=== PATIENT | female | born 1935 | race Caucasian/White ===

== ENCOUNTER 2017-05-15 11:33 | Inpatient (IN) | payer OTHER ==
[~2017-05-15] VITALS: Ht 147.3 cm; Wt 59.9 kg
[~2017-05-15 11:33] MED LIST: ASPI81CT95 PO; ATOR20TA PO; GEMF600T8 PO; LEVO0.0216 PO; MEGE40SU6 PO; OMEP40EC1 PO
[2017-05-15 11:41] VITALS: BP 113/53
[2017-05-15] MEDS ORDERED: FAMOTIDINE 20 MG/2 ML VIAL IVP ONE (14:00)
[2017-05-15] MEDS ORDERED: GLYCOPYRROLATE 0.2 MG/ML VIAL IV ONE (14:00)
[2017-05-15 15:00] LABS: RED CELL DISTRIBUTION WIDTH 13.9 % (11.6-13.7)
[2017-05-15 15:06] LABS: HEMATOCRIT 37.2 % (36-48); HEMOGLOBIN 12.3 g/dL (12.0-16.0); MEAN CORPUSCULAR HEMOGLOBIN 28 pg (27-31); MEAN CORPUSCULAR HGB CONC 33 g/dL (33-37); MEAN CORPUSCULAR VOLUME 84 fL (80-94); PLATELET COUNT (AUTO) 163 K/uL (140-450); RED BLOOD CELL COUNT(AUTO) 4.41 MIL/uL (4.20-5.40); WHITE BLOOD COUNT (AUTO) 13.4 K/uL (4.8-10.8)
[2017-05-15 15:08] LABS: APPEARANCE,URINE CLOUDY (CLEAR); BILIRUBIN,URINE 1+ (NEGATIVE); BLOOD, URINE 3+ (NEGATIVE); COLOR,URINE YELLOW (YELLOW); LEUKOCYTE ESTERASE ,URINE 2+ (NEGATIVE); NITRITE, URINE NEGATIVE (NEGATIVE); UGLUCOSE NEGATIVE (NEGATIVE)
[2017-05-15 15:24] LABS: LYMPHOCYTES % (MANUAL) 13 % (20-46); MONOCYTES % (MANUAL) 1 % (5-12)
[2017-05-15 15:33] LABS: ALBUMIN 3.3 g/dL (3.4-5.0); AMYLASE 74 U/L (25-115); ANION GAP 19.5 (8-16); ASPARTATE AMINOTRANSFERASE 13 U/L (15-37); CARBON DIOXIDE 18.1 mmol/L (21-32); CHLORIDE 101 mmol/L (98-107); CREATININE 2.7 mg/dL (0.6-1.3); GLUCOSE 387 mg/dL (74-106); LIPASE 211 U/L (73-393); POTASSIUM 3.6 mmol/L (3.5-5.1); SODIUM SERUM 135 mmol/L (136-145); TOTAL BILIRUBIN 0.7 mg/dL (0.0-1.0); UREA NITROGEN, BLOOD 55 mg/dL (7-18)
[2017-05-15 16:08] LABS: RBC,URINE 50-80 /HPF (0-5); WBC,URINE 80-100 /HPF (0-5)
[2017-05-15] MEDS: NACL 0.9% 1,000 ML IV SCH ×4 (16:16→19:30)
[2017-05-15] MEDS ORDERED: NACL 0.9% 1,000 ML IV SCH (16:23)
[2017-05-15] MEDS ORDERED: LEVOFLOXACIN 500 MG/D5W PREMIX 100 ML IV ONE (16:25)
[2017-05-15] MEDS ORDERED: INSULIN REGULAR, HUMAN 100 UNIT/ML VIAL SUBQ ONE (16:30)
[2017-05-15] MEDS ORDERED: ONDANSETRON 4 MG/2 ML VIAL IVP PRN (16:45)
[2017-05-15] MEDS ORDERED: HYDROcodone/APAP 5/325 MG 1 TAB TAB PO PRN (16:45)
[2017-05-15] MEDS ORDERED: DEXTROSE 50% 50 ML SYR IVP PRN (16:45)
[2017-05-15] MEDS ORDERED: MORPHINE SULFATE 2 MG/ML SYR IVP PRN (16:45)
[2017-05-15] MEDS ORDERED: LORazepam 2 MG/ML VIAL IVP PRN (16:45)
[2017-05-15] MEDS ORDERED: ACETAMINOPHEN EXTRA STRENGTH 500 MG TAB PO ONE (16:45)
[2017-05-15] MEDS ORDERED: CLON0.1T42 PO (16:57)
[2017-05-15] MEDS ORDERED: MEGE40TA4 PO (16:59)
[2017-05-15] MEDS ORDERED: SITA100T8 PO (17:01)
[2017-05-15 19:30] VITALS: BP 111/61
[2017-05-15] MEDS: BLOOD GLUCOSE MONITORING 1 DEV DEV FS SCH (20:56)
[2017-05-15] MEDS ORDERED: GEMFIBROZIL 600 MG TAB PO SCH (21:00)
[2017-05-15] MEDS ORDERED: NACL 0.9% 1,000 ML IV ONE (23:15)
[2017-05-16] VITALS (45 sets, daily range): BP systolic 79–157; BP diastolic 38–98
[2017-05-16] MEDS ORDERED: NACL 0.9% 1,000 ML IV ONE (00:30)
[2017-05-16] MEDS ORDERED: NOREPINEPHRINE 4 MG in DEXTROSE 5% 250 ML IV PRN (01:45)
[2017-05-16] MEDS: NACL 0.9% 1,000 ML IV SCH ×3 (02:27→23:40)
[2017-05-16] MEDS ORDERED: NOREPINEPHRINE 4 MG/4 ML VIAL IV ONE (02:35)
[2017-05-16] MEDS ORDERED: PIPERACILLIN/TAZOBACTAM 2.25 GM VIAL IV ONE (03:29)
[2017-05-16 03:37] LABS: ALBUMIN 2.3 g/dL (3.4-5.0); ANION GAP 20.9 (8-16); ASPARTATE AMINOTRANSFERASE 18 U/L (15-37); CARBON DIOXIDE 12.4 mmol/L (21-32); CHLORIDE 111 mmol/L (98-107); CREATININE 2.8 mg/dL (0.6-1.3); GLUCOSE 144 mg/dL (74-106); POTASSIUM 3.3 mmol/L (3.5-5.1); TOTAL BILIRUBIN 0.5 mg/dL (0.0-1.0); UREA NITROGEN, BLOOD 54 mg/dL (7-18)
[2017-05-16 03:38] LABS: SODIUM SERUM 141 mmol/L (136-145)
[2017-05-16] MEDS: PIPER/TAZO 2.25GM/D5W PREMIX 50 ML IV SCH ×3 (04:24→20:16)
[2017-05-16] MEDS ORDERED: PIPER/TAZO 3.375GM/D5W PREMIX 50 ML IV SCH (05:00)
[2017-05-16 05:34] LABS: HEMATOCRIT 31.1 % (36-48); HEMOGLOBIN 10.4 g/dL (12.0-16.0); MEAN CORPUSCULAR HEMOGLOBIN 28 pg (27-31); MEAN CORPUSCULAR HGB CONC 33 g/dL (33-37); MEAN CORPUSCULAR VOLUME 85 fL (80-94); PLATELET COUNT (AUTO) 145 K/uL (140-450); RED BLOOD CELL COUNT(AUTO) 3.65 MIL/uL (4.20-5.40); RED CELL DISTRIBUTION WIDTH 14.5 % (11.6-13.7)
[2017-05-16 05:48] LABS: LYMPHOCYTES % (MANUAL) 5 % (20-46); METAMYELOCYTES % 2 % (0-0); MONOCYTES % (MANUAL) 6 % (5-12)
[2017-05-16] MEDS: BLOOD GLUCOSE MONITORING 1 DEV DEV FS SCH ×4 (06:43→20:15)
[2017-05-16] MEDS: INSULIN LISPRO SLIDING SCALE 100 UNITS/ML VIAL SUBQ PRN ×4 (06:44→20:17)
[2017-05-16 07:03] LABS: HEMATOCRIT 31.5 % (36-48); HEMOGLOBIN 10.5 g/dL (12.0-16.0); MEAN CORPUSCULAR HEMOGLOBIN 28 pg (27-31); MEAN CORPUSCULAR HGB CONC 33 g/dL (33-37); MEAN CORPUSCULAR VOLUME 85 fL (80-94); PLATELET COUNT (AUTO) 149 K/uL (140-450); RED BLOOD CELL COUNT(AUTO) 3.71 MIL/uL (4.20-5.40); RED CELL DISTRIBUTION WIDTH 14.7 % (11.6-13.7); WHITE BLOOD COUNT (AUTO) 23.7 K/uL (4.8-10.8)
[2017-05-16 07:52] LABS: ANION GAP 23.2 (8-16); CHLORIDE 111 mmol/L (98-107); CREATININE 2.7 mg/dL (0.6-1.3); GLUCOSE 203 mg/dL (74-106); POTASSIUM 3.4 mmol/L (3.5-5.1); SODIUM SERUM 140 mmol/L (136-145); UREA NITROGEN, BLOOD 52 mg/dL (7-18)
[2017-05-16 07:58] LABS: CARBON DIOXIDE 9.2 mmol/L (21-32)
[2017-05-16 08:08] LABS: LYMPHOCYTES % (MANUAL) 6 % (20-46); MONOCYTES % (MANUAL) 2 % (5-12)
[2017-05-16] MEDS: PANTOPRAZOLE 40 MG TABEC PO SCH (08:30)
[2017-05-16] MEDS: ATORVASTATIN 20 MG TAB PO SCH (08:30)
[2017-05-16] MEDS: ASPIRIN 81 MG TAB.CHEW PO SCH (08:30)
[2017-05-16] MEDS: LEVOTHYROXINE 0.025 MG TAB PO SCH (08:31)
[2017-05-16] MEDS: MEGESTROL 40 MG TAB PO SCH (08:31)
[2017-05-16] MEDS ORDERED: NON-FORMULARY ITEM (Omeprazole* (Prilosec*) 20 MG) PO SCH (09:00)
[2017-05-16] MEDS ORDERED: LEVOTHYROXINE 0.025 MG TAB PO SCH (09:00)
[2017-05-16] MEDS: ACETAMINOPHEN 325 MG TAB PO PRN (12:12)
[2017-05-16] MEDS ORDERED: HYDRAGUARD CREAM TP PRN (16:10)
[2017-05-16] MEDS ORDERED: POTASSIUM CHLORIDE 10 MEQ TABER PO SCH (16:30)
[2017-05-16] MEDS: MEROPENEM 500 MG in NACL 0.9% 50 ML IV SCH ×2 (23:20→23:30)
[2017-05-16] MEDS ORDERED: MEROPENEM 500 MG VIAL IV ONE (23:23)
[2017-05-16] MEDS: MEROPENEM 500 MG in NACL 0.9% 100 ML IV SCH (23:39)
[2017-05-17] VITALS (10 sets, daily range): BP systolic 92–155; BP diastolic 56–77
[2017-05-17] MEDS: BLOOD GLUCOSE MONITORING 1 DEV DEV FS SCH ×4 (06:48→21:00)
[2017-05-17] MEDS: INSULIN LISPRO SLIDING SCALE 100 UNITS/ML VIAL SUBQ PRN ×4 (06:49→20:19)
[2017-05-17] MEDS: NACL 0.9% 1,000 ML IV SCH ×3 (08:45→23:23)
[2017-05-17] MEDS: MEGESTROL 40 MG TAB PO SCH (09:27)
[2017-05-17] MEDS: PANTOPRAZOLE 40 MG TABEC PO SCH (09:28)
[2017-05-17] MEDS: ATORVASTATIN 20 MG TAB PO SCH (09:28)
[2017-05-17] MEDS: LEVOTHYROXINE 0.025 MG TAB PO SCH (09:29)
[2017-05-17] MEDS: ASPIRIN 81 MG TAB.CHEW PO SCH (09:30)
[2017-05-17 12:10] LABS: HEMATOCRIT 32.2 % (36-48); HEMOGLOBIN 10.7 g/dL (12.0-16.0); MEAN CORPUSCULAR HEMOGLOBIN 28 pg (27-31); MEAN CORPUSCULAR HGB CONC 33 g/dL (33-37); MEAN CORPUSCULAR VOLUME 85 fL (80-94); PLATELET COUNT (AUTO) 114 K/uL (140-450); RED CELL DISTRIBUTION WIDTH 14.3 % (11.6-13.7); WHITE BLOOD COUNT (AUTO) 15.6 K/uL (4.8-10.8)
[2017-05-17 12:19] LABS: ANION GAP 19.7 (8-16); CARBON DIOXIDE 12.3 mmol/L (21-32); CHLORIDE 110 mmol/L (98-107); CREATININE 2.7 mg/dL (0.6-1.3); GLUCOSE 264 mg/dL (74-106); SODIUM SERUM 138 mmol/L (136-145); UREA NITROGEN, BLOOD 60 mg/dL (7-18)
[2017-05-17 12:24] LABS: LYMPHOCYTES % (MANUAL) 11 % (20-46); MONOCYTES % (MANUAL) 2 % (5-12)
[2017-05-17] MEDS ORDERED: MUPIROCIN 2% OINT 22 GM TUBE TP SCH (16:15)
[2017-05-17] MEDS: CHLORHEXADINE GLUC 2% CLOTH TP SCH (16:58)
[2017-05-17] MEDS ORDERED: INFLUENZA VIRUS VACCINE QUAD 0.5 ML SYR IMVAC SCH (17:00)
[2017-05-17] MEDS ORDERED: PNEUMOCOCCAL VACCINE 23 MCG/0.5 ML VIAL IMVAC SCH (17:00)
[2017-05-17] MEDS: MEROPENEM 500 MG in NACL 0.9% 100 ML IV SCH (23:16)
[2017-05-18] VITALS: BP 139/67
[2017-05-18] MEDS: NACL 0.9% 1,000 ML IV SCH ×2 (04:45→16:47)
[2017-05-18] MEDS: BLOOD GLUCOSE MONITORING 1 DEV DEV FS SCH ×4 (05:42→20:33)
[2017-05-18] MEDS: INSULIN LISPRO SLIDING SCALE 100 UNITS/ML VIAL SUBQ PRN ×4 (05:43→20:16)
[2017-05-18 05:56] VITALS: BP 149/70
[2017-05-18 08:00] VITALS: BP 140/79
[2017-05-18] MEDS: ACETAMINOPHEN 325 MG TAB PO PRN (09:36)
[2017-05-18] MEDS: MEGESTROL 40 MG TAB PO SCH (09:38)
[2017-05-18] MEDS: LEVOTHYROXINE 0.025 MG TAB PO SCH (09:39)
[2017-05-18] MEDS: PANTOPRAZOLE 40 MG TABEC PO SCH (09:39)
[2017-05-18] MEDS: ATORVASTATIN 20 MG TAB PO SCH (09:39)
[2017-05-18] MEDS: ASPIRIN 81 MG TAB.CHEW PO SCH (09:39)
[2017-05-18] MEDS ORDERED: MEROPENEM 500 MG in NACL 0.9% 50 ML IV SCH (11:13)
[2017-05-18 12:00] VITALS: BP 137/70
[2017-05-18 16:00] VITALS: BP 150/75
[2017-05-18] MEDS: CHLORHEXADINE GLUC 2% CLOTH TP SCH (16:48)
[2017-05-18] MEDS: MUPIROCIN 2% OINT 22 GM TUBE TP SCH (16:48)
[2017-05-18 20:00] VITALS: BP 159/80
[2017-05-18] MEDS ORDERED: cefTRIAXone 1,000 MG VIAL ONE (20:03)
[2017-05-19] VITALS: BP 136/66
[2017-05-19] MEDS: NACL 0.9% 1,000 ML IV SCH ×3 (00:45→20:45)
[2017-05-19] MEDS: BLOOD GLUCOSE MONITORING 1 DEV DEV FS SCH ×4 (06:17→20:48)
[2017-05-19] MEDS: INSULIN LISPRO SLIDING SCALE 100 UNITS/ML VIAL SUBQ PRN ×4 (06:42→20:48)
[2017-05-19 08:00] VITALS: BP 146/68
[2017-05-19] MEDS: LEVOTHYROXINE 0.025 MG TAB PO SCH (09:04)
[2017-05-19] MEDS: PANTOPRAZOLE 40 MG TABEC PO SCH (09:05)
[2017-05-19] MEDS: ATORVASTATIN 20 MG TAB PO SCH (09:05)
[2017-05-19] MEDS: ASPIRIN 81 MG TAB.CHEW PO SCH (09:05)
[2017-05-19] MEDS: MEGESTROL 40 MG TAB PO SCH (09:06)
[2017-05-19 16:00] VITALS: BP 148/79
[2017-05-19] MEDS: MUPIROCIN 2% OINT 22 GM TUBE TP SCH (16:42)
[2017-05-19] MEDS: CHLORHEXADINE GLUC 2% CLOTH TP SCH (16:42)
[2017-05-20] VITALS: BP 148/71
[2017-05-20] MEDS: NACL 0.9% 1,000 ML IV SCH (06:10)
[2017-05-20 06:36] LABS: HEMATOCRIT 32.9 % (36-48); HEMOGLOBIN 11.2 g/dL (12.0-16.0); MEAN CORPUSCULAR HEMOGLOBIN 28 pg (27-31); MEAN CORPUSCULAR HGB CONC 34 g/dL (33-37); MEAN CORPUSCULAR VOLUME 84 fL (80-94); PLATELET COUNT (AUTO) 133 K/uL (140-450); RED BLOOD CELL COUNT(AUTO) 3.93 MIL/uL (4.20-5.40); RED CELL DISTRIBUTION WIDTH 13.6 % (11.6-13.7); WHITE BLOOD COUNT (AUTO) 7.7 K/uL (4.8-10.8)
[2017-05-20] MEDS: BLOOD GLUCOSE MONITORING 1 DEV DEV FS SCH ×2 (06:39→11:33)
[2017-05-20] MEDS: INSULIN LISPRO SLIDING SCALE 100 UNITS/ML VIAL SUBQ PRN ×2 (06:39→12:34)
[2017-05-20 07:28] LABS: ANION GAP 17.9 (8-16); CARBON DIOXIDE 15.7 mmol/L (21-32); CHLORIDE 111 mmol/L (98-107); CREATININE 1.3 mg/dL (0.6-1.3); EOSINOPHILS % (MANUAL) 2 % (0-4); GLUCOSE 214 mg/dL (74-106); LYMPHOCYTES % (MANUAL) 21 % (20-46); METAMYELOCYTES % 1 % (0-0); MONOCYTES % (MANUAL) 14 % (5-12); MYELOCYTES % 1 % (0-0); POTASSIUM 3.6 mmol/L (3.5-5.1); SODIUM SERUM 141 mmol/L (136-145); UREA NITROGEN, BLOOD 27 mg/dL (7-18)
[2017-05-20 08:00] VITALS: BP 143/69
[2017-05-20] MEDS: PANTOPRAZOLE 40 MG TABEC PO SCH (09:01)
[2017-05-20] MEDS: LEVOTHYROXINE 0.025 MG TAB PO SCH (09:01)
[2017-05-20] MEDS: MEGESTROL 40 MG TAB PO SCH (09:01)
[2017-05-20] MEDS: ASPIRIN 81 MG TAB.CHEW PO SCH (09:01)
[2017-05-20] MEDS: ATORVASTATIN 20 MG TAB PO SCH (09:01)
[2017-05-20] MEDS ORDERED: CEPH500C16 PO (11:50)
== END 2017-05-20 14:00 | disposition home or self-care (01) | DRG 871 ==
LOC: MED 11:33 → MTU 16:48 → EDBD 16:48 → MIC 05-16 01:49 → MTU 05-17 19:06
PROVIDERS: ADMIT Hospitalist; ATTEND Hospitalist
PROC: 3E0234Z Introduction of Serum, Toxoid and Vaccine into Muscle, Percutaneous Approach (ICD-10-PCS; principal; 2017-05-20)
PROC: 3E0234Z Introduction of Serum, Toxoid and Vaccine into Muscle, Percutaneous Approach (ICD-10-PCS; 2017-05-20)
DX: A41.51 Sepsis due to Escherichia coli [E. coli] (principal); R65.21 Severe sepsis with septic shock; N12 Tubulo-interstitial nephritis, not specified as acute or chronic; E11.9 Type 2 diabetes mellitus without complications; E03.9 Hypothyroidism, unspecified; B96.20 Unspecified Escherichia coli [E. coli] as the cause of diseases classified elsewhere; E78.5 Hyperlipidemia, unspecified; I10 Essential (primary) hypertension; N20.0 Calculus of kidney; E87.6 Hypokalemia; E86.0 Dehydration; Z22.322 Carrier or suspected carrier of Methicillin resistant Staphylococcus aureus; Z79.84 Long term (current) use of oral hypoglycemic drugs; Z79.82 Long term (current) use of aspirin; Z79.899 Other long term (current) drug therapy; Z23 Encounter for immunization
CPT/HCPCS: 36415; 80048; 80053; 81001; 82009; 82150; 82550; 82948; 83605; 83690; 84484; 85025; 87040; 87081; 87086; 87186; 90658; 90732; 93005; 96361; 96374; 96375; 99285; J0696; J1644; J1815; J1956; J2185; J2270; J2405; J2543; J3490; J7030; J7060

== ENCOUNTER → 2017-06-01 | Outpatient (CLI) | payer OTHER ==
[~2017-06-01] MED LIST changes: +CEPH500C16 PO; +CLON0.1T42 PO; +MEGE40TA4 PO; +SITA100T8 PO
[2017-06-01 10:22] LABS: APPEARANCE,URINE CLEAR (CLEAR); BILIRUBIN,URINE NEGATIVE (NEGATIVE); BLOOD, URINE NEGATIVE (NEGATIVE); COLOR,URINE YELLOW (YELLOW); LEUKOCYTE ESTERASE ,URINE NEGATIVE (NEGATIVE); NITRITE, URINE NEGATIVE (NEGATIVE); UGLUCOSE NEGATIVE (NEGATIVE)
[2017-06-01 10:36] LABS: ANION GAP 17.7 (8-16); ASPARTATE AMINOTRANSFERASE 13 U/L (15-37); CARBON DIOXIDE 20.1 mmol/L (21-32); CHLORIDE 103 mmol/L (98-107); CREATININE 1.7 mg/dL (0.6-1.3); GLUCOSE 184 mg/dL (74-106); MAGNESIUM 1.3 mg/dL (1.8-2.4); PHOSPHORUS 3.1 mg/dL (2.5-4.9); POTASSIUM 3.8 mmol/L (3.5-5.1); SODIUM SERUM 137 mmol/L (136-145); TOTAL BILIRUBIN 0.4 mg/dL (0.0-1.0); UREA NITROGEN, BLOOD 37 mg/dL (7-18)
[2017-06-01 13:38] LABS: BASOPHILS # (AUTO) 0.4 K/uL (0.00-0.22); EOSINOPHILS # (AUTO) 0.1 K/uL (0-0.4); HEMATOCRIT 34.8 % (36-48); HEMOGLOBIN 11.4 g/dL (12.0-16.0); MEAN CORPUSCULAR HEMOGLOBIN 28 pg (27-31); MEAN CORPUSCULAR HGB CONC 33 g/dL (33-37); MEAN CORPUSCULAR VOLUME 85 fL (80-94); MONOCYTES # (AUTO) 1.4 K/uL (0.8-1.0); NEUTROPHILS # (AUTO) 7.4 K/uL (1.8-7.7); PLATELET COUNT (AUTO) 332 K/uL (140-450); RED CELL DISTRIBUTION WIDTH 14.3 % (11.6-13.7); WHITE BLOOD COUNT (AUTO) 13.3 K/uL (4.8-10.8)
== END ==
LOC: MLB 09:28
PROVIDERS: ATTEND Internal Medicine Nephrology
DX: E11.22 Type 2 diabetes mellitus with diabetic chronic kidney disease (principal); N18.4 Chronic kidney disease, stage 4 (severe); I12.9 Hypertensive chronic kidney disease with stage 1 through stage 4 chronic kidney disease, or unspecified chronic kidney disease; E11.21 Type 2 diabetes mellitus with diabetic nephropathy; E83.42 Hypomagnesemia
CPT/HCPCS: 36415; 80053; 81003; 82570; 83735; 84100; 84156; 85025

== ENCOUNTER 2017-09-29 08:32 | Outpatient (CLI) | payer OTHER ==
[2017-09-29 09:25] LABS: BASOPHILS # (AUTO) 0.1 K/uL (0.00-0.22); BASOPHILS % (AUTO) 0.7 % (0.0-2.0); EOSINOPHILS # (AUTO) 0.1 K/uL (0-0.4); EOSINOPHILS % (AUTO) 1.5 % (0.0-4.0); HEMATOCRIT 37.6 % (36-48); HEMOGLOBIN 12.2 g/dL (12.0-16.0); LYMPHOCYTES # (AUTO) 2.5 K/uL (2.5-16.5); LYMPHOCYTES % (AUTO) 30.6 % (20.5-51.1); MEAN CORPUSCULAR HEMOGLOBIN 27 pg (27-31); MEAN CORPUSCULAR HGB CONC 33 g/dL (33-37); MEAN CORPUSCULAR VOLUME 84.3 fL (80-94); MONOCYTES # (AUTO) 0.7 K/uL (0.8-1.0); MONOCYTES % (AUTO) 8.1 % (1.7-9.3); NEUTROPHILS # (AUTO) 4.8 K/uL (1.8-7.7); NEUTROPHILS % (AUTO) 59.1 % (42.2-75.2); PLATELET COUNT (AUTO) 217 K/uL (140-450); RED BLOOD CELL COUNT(AUTO) 4.46 MIL/uL (4.20-5.40); RED CELL DISTRIBUTION WIDTH 16.1 % (11.6-13.7); WHITE BLOOD COUNT (AUTO) 8.2 K/uL (4.8-10.8)
[2017-09-29 09:36] LABS: APPEARANCE,URINE CLEAR (CLEAR); BILIRUBIN,URINE NEGATIVE (NEGATIVE); BLOOD, URINE NEGATIVE (NEGATIVE); COLOR,URINE YELLOW (YELLOW); LEUKOCYTE ESTERASE ,URINE 1+ (NEGATIVE); NITRITE, URINE NEGATIVE (NEGATIVE); UGLUCOSE NEGATIVE (NEGATIVE)
[2017-09-29 09:48] LABS: RBC,URINE NONE SEEN /HPF (0-5)
[2017-09-29 10:49] LABS: ALBUMIN 3.5 g/dL (3.4-5.0); ANION GAP 18.4 (8-16); ASPARTATE AMINOTRANSFERASE 14 U/L (15-37); CARBON DIOXIDE 19.2 mmol/L (21-32); CHLORIDE 104 mmol/L (98-107); GLUCOSE 217 mg/dL (74-106); MAGNESIUM 1.6 mg/dL (1.8-2.4); PHOSPHORUS 3.2 mg/dL (2.5-4.9); POTASSIUM 3.6 mmol/L (3.5-5.1); SODIUM SERUM 138 mmol/L (136-145); TOTAL BILIRUBIN 0.3 mg/dL (0.0-1.0); UREA NITROGEN, BLOOD 52 mg/dL (7-18)
[2017-09-29 16:46] LABS: CREATININE,URINE RANDOM 133 mg/dL (30-125); URINE PROTEIN QUANT RANDOM 38.4 mg/dL (15-45)
== END 2017-09-29 17:58 | disposition home or self-care (01) ==
LOC: MLB 08:32
PROVIDERS: ATTEND Internal Medicine Nephrology
DX: I12.9 Hypertensive chronic kidney disease with stage 1 through stage 4 chronic kidney disease, or unspecified chronic kidney disease (principal); E11.22 Type 2 diabetes mellitus with diabetic chronic kidney disease; N18.3 Chronic kidney disease, stage 3 (moderate); E78.5 Hyperlipidemia, unspecified; E03.9 Hypothyroidism, unspecified; K21.9 Gastro-esophageal reflux disease without esophagitis; N17.9 Acute kidney failure, unspecified; Z79.899 Other long term (current) drug therapy; Z79.82 Long term (current) use of aspirin
CPT/HCPCS: 36415; 80053; 81001; 82570; 83735; 84100; 84157; 85025; 87086; 87186

== ENCOUNTER 2018-07-12 08:30 | Outpatient (CLI) | payer OTHER ==
[~2018-07-12 08:30] MED LIST changes: +GEMF-61 PO; -GEMF600T8 PO
[2018-07-12 09:14] LABS: APPEARANCE,URINE CLEAR (CLEAR); BILIRUBIN,URINE NEGATIVE (NEGATIVE); BLOOD, URINE NEGATIVE (NEGATIVE); COLOR,URINE YELLOW (YELLOW); LEUKOCYTE ESTERASE ,URINE NEGATIVE (NEGATIVE); NITRITE, URINE NEGATIVE (NEGATIVE); PH,URINE 5.5 (5.0-9.0); UGLUCOSE NEGATIVE (NEGATIVE)
[2018-07-12 09:31] LABS: BASOPHILS # (AUTO) 0.1 K/uL (0.00-0.22); BASOPHILS % (AUTO) 0.6 % (0.0-2.0); EOSINOPHILS # (AUTO) 0.3 K/uL (0-0.4); EOSINOPHILS % (AUTO) 3.5 % (0.0-4.0); HEMOGLOBIN 12.5 g/dL (12.0-16.0); LYMPHOCYTES # (AUTO) 2.8 K/uL (2.5-16.5); LYMPHOCYTES % (AUTO) 33.4 % (20.5-51.1); MEAN CORPUSCULAR HEMOGLOBIN 28 pg (27-31); MEAN CORPUSCULAR HGB CONC 33 g/dL (33-37); MEAN CORPUSCULAR VOLUME 85.2 fL (80-94); MONOCYTES # (AUTO) 0.8 K/uL (0.8-1.0); MONOCYTES % (AUTO) 9.4 % (1.7-9.3); NEUTROPHILS # (AUTO) 4.4 K/uL (1.8-7.7); NEUTROPHILS % (AUTO) 53.1 % (42.2-75.2); PLATELET COUNT (AUTO) 244 K/uL (140-450); RED BLOOD CELL COUNT(AUTO) 4.46 MIL/uL (4.20-5.40); WHITE BLOOD COUNT (AUTO) 8.3 K/uL (4.8-10.8)
[2018-07-12 09:36] LABS: RBC,URINE 0-5 /HPF (0-5); WBC,URINE 0-5 /HPF (0-5)
[2018-07-12 09:43] LABS: CARBON DIOXIDE 21.6 mmol/L (21-32); CHLORIDE 104 mmol/L (98-107); CREATININE 1.6 mg/dL (0.6-1.3); GLUCOSE 231 mg/dL (74-106); POTASSIUM 4.6 mmol/L (3.5-5.1); SODIUM SERUM 140 mmol/L (136-145); UREA NITROGEN, BLOOD 46 mg/dL (7-18)
[2018-07-12 09:48] LABS: ALBUMIN 3.5 g/dL (3.4-5.0); ASPARTATE AMINOTRANSFERASE 26 U/L (15-37); MAGNESIUM 1.6 mg/dL (1.8-2.4); PHOSPHORUS 3.1 mg/dL (2.5-4.9); TOTAL BILIRUBIN 0.4 mg/dL (0.0-1.0)
== END 2018-07-12 21:01 | disposition home or self-care (01) ==
LOC: MLB 08:30
PROVIDERS: ATTEND Internal Medicine Nephrology
DX: I12.9 Hypertensive chronic kidney disease with stage 1 through stage 4 chronic kidney disease, or unspecified chronic kidney disease (principal); E11.22 Type 2 diabetes mellitus with diabetic chronic kidney disease; N18.4 Chronic kidney disease, stage 4 (severe); E87.2 Acidosis
CPT/HCPCS: 36415; 80053; 81001; 83735; 84100; 84157; 85025

== ENCOUNTER 2018-10-28 18:09 | Inpatient (IN) | payer OTHER ==
[~2018-10-28] VITALS: Ht 152.4 cm; Wt 54.4 kg
[2018-10-28 18:13] VITALS: BP 131/60
--- NOTE | 2018-10-28 18:15 | NUR ---
Patient to bed 3. RN evaluating patient at bedside.
[2018-10-28] MEDS ORDERED: NACL 0.9% 500 ML IV ONE (18:25)
--- NOTE | 2018-10-28 18:30 | NUR ---
Dr. Melo evaluating patient at bedside.
[2018-10-28] MEDS ORDERED: KETOROLAC 30 MG/ML VIAL IVP ONE (18:45)
--- NOTE | 2018-10-28 18:45 | NUR ---
PT BIB DAUGHTER WITH C/O LOWER ABD PAIN RADIATING TO THE WHOLE BACK X 7 DAYS. STATES HER PAINN GOT WORSE SINCE YESTERDAY.PAIN 4/10 AT THIS TIME. DENIES TAKING ANY MEDICATION. PT HAD FALL IN THE BACK YARD 7 DAYS AGO, DID NOT GO TO HOSPITAL TO CHECK BECAUSE PT STATED SHE WAS FINE. NO LOC CHANGED. PT AAOX4, ABLE TO MAKE HER NEEDS KNOWN. DENIES ANY ALLERGIC TO MEDS. ER MD ASSESSED THE PT. HX: DM. KIDNEY FAILURE, HIGH CHOLESTROL TX: FUROSEMIDE, CLONODINE HCL, ASPIRIN, MEGESTROL, SODIUM BICARD, ATORVASTATIN, JANUVIA, AMLODIPINE BESYLATE, OMEPRAZOLE, LEVOTHYROXINE, GEMFIBROZIL
[2018-10-28 18:51] LABS: BASOPHILS # (AUTO) 0.1 K/uL (0.00-0.22); EOSINOPHILS # (AUTO) 0.1 K/uL (0-0.4); HEMATOCRIT 35.7 % (36-48); HEMOGLOBIN 11.7 g/dL (12.0-16.0); LYMPHOCYTES # (AUTO) 2.5 K/uL (2.5-16.5); LYMPHOCYTES % (AUTO) 22.9 % (20.5-51.1); MEAN CORPUSCULAR HEMOGLOBIN 29 pg (27-31); MEAN CORPUSCULAR HGB CONC 33 g/dL (33-37); MEAN CORPUSCULAR VOLUME 87.2 fL (80-94); MONOCYTES # (AUTO) 0.9 K/uL (0.8-1.0); MONOCYTES % (AUTO) 8.1 % (1.7-9.3); NEUTROPHILS # (AUTO) 7.3 K/uL (1.8-7.7); PLATELET COUNT (AUTO) 218 K/uL (140-450); RED BLOOD CELL COUNT(AUTO) 4.09 MIL/uL (4.20-5.40); RED CELL DISTRIBUTION WIDTH 15.4 % (11.6-13.7)
--- NOTE | 2018-10-28 18:55 | NUR ---
PT WENT TO CT. IVF INFUSING WELL. GAVE PT WATER TO DRINK . CANNOT PEE AT THIS TIME. WILL GO RESTROOM IN A WHILE AFTER COMING BACK FRROM CT. URINE CUP ATG THE BEDSIDE.
[2018-10-28 19:02] LABS: ANION GAP 18.8 (8-16); CARBON DIOXIDE 18.5 mmol/L (21-32); CHLORIDE 106 mmol/L (98-107); GLUCOSE 267 mg/dL (74-106); POTASSIUM 3.3 mmol/L (3.5-5.1); SODIUM SERUM 140 mmol/L (136-145); UREA NITROGEN, BLOOD 52 mg/dL (7-18)
[2018-10-28 19:05] LABS: PROTHROMBIN TIME 10.8 secs (10.8-13.4)
[2018-10-28 19:07] LABS: ALBUMIN 3.5 g/dL (3.4-5.0); ASPARTATE AMINOTRANSFERASE 16 U/L (15-37); TOTAL BILIRUBIN 0.6 mg/dL (0.0-1.0)
--- NOTE | 2018-10-28 19:23 | NUR ---
PT BACK FROM CT. WENT RESTROOM TO GET URINE SMPL.
--- NOTE | 2018-10-28 19:27 | NUR ---
REPORT GIVEN TO MABEL CALLOWAY. PT AT THE BEDSIDE.PT STABLE.
[2018-10-28] MEDS ORDERED: INSULIN REGULAR, HUMAN 100 UNIT/ML VIAL SUBQ ONE (19:45)
[2018-10-28] MEDS ORDERED: POTASSIUM CHLORIDE 10 MEQ TABER PO ONE (19:45)
[2018-10-28] MEDS ORDERED: CIPROFLOXACIN 250 MG TAB PO ONE (19:50)
[2018-10-28] MEDS ORDERED: metroNIDAZOLE 500 MG/NS PREMIX 100 ML IV ONE (19:50)
[2018-10-28 20:08] LABS: APPEARANCE,URINE CLEAR (CLEAR); BILIRUBIN,URINE NEGATIVE (NEGATIVE); BLOOD, URINE NEGATIVE (NEGATIVE); COLOR,URINE YELLOW (YELLOW); LEUKOCYTE ESTERASE ,URINE TRACE (NEGATIVE); NITRITE, URINE NEGATIVE (NEGATIVE); PH,URINE 5.5 (5.0-9.0); UGLUCOSE NEGATIVE (NEGATIVE)
[2018-10-28] MEDS ORDERED: HYDROcodone/APAP 5/325 MG 1 TAB TAB PO PRN ×2 (20:10)
[2018-10-28] MEDS ORDERED: POTASSIUM CHLORIDE 40 MEQ, LIDOCAINE 1% 25 MG in NACL 0.9% 250 ML IV PRN (20:10)
[2018-10-28] MEDS ORDERED: BISACODYL 10 MG SUPP RC PRN (20:10)
[2018-10-28] MEDS ORDERED: ACETAMINOPHEN 650 MG SUPP RC PRN (20:10)
[2018-10-28] MEDS ORDERED: ACETAMINOPHEN 325 MG TAB PO PRN (20:10)
[2018-10-28] MEDS ORDERED: POTASSIUM CHLORIDE 10 MEQ TABER PO PRN (20:10)
[2018-10-28] MEDS ORDERED: MORPHINE SULFATE 2 MG/ML SYR IVP PRN (20:10)
[2018-10-28] MEDS ORDERED: SODIUM PHOSPHATE 118 ML ENEM RC PRN (20:10)
[2018-10-28] MEDS ORDERED: cloNIDine 0.1 MG TAB PO PRN (20:10)
[2018-10-28] MEDS ORDERED: diphenhydrAMINE 50 MG/ML VIAL IVP PRN (20:10)
[2018-10-28] MEDS ORDERED: DEXTROSE 50% 50 ML SYR IVP PRN (20:10)
[2018-10-28] MEDS ORDERED: DOCUSATE SODIUM 250 MG GELCAP PO PRN (20:10)
[2018-10-28] MEDS ORDERED: ALUMINUM HYD/MAG/SIMETHICONE 30 ML UDC PO PRN (20:10)
[2018-10-28] MEDS ORDERED: ONDANSETRON 4 MG/2 ML VIAL IVP PRN (20:10)
[2018-10-28] MEDS ORDERED: MAGNESIUM OXIDE 400 MG TAB PO PRN (20:10)
--- NOTE | 2018-10-28 20:10 | NUR ---
ALL RESULTS BACK AND NOTED BY ERMD AND FOR ADMISSION
--- NOTE | 2018-10-28 20:16 | NUR ---
Patient will be admitted to care of DR. BANUELOS. Admited to [facility] Will go to [id number]. Belongings list completed. Report to STACEY MONROE
[2018-10-28 20:24] LABS: RBC,URINE 0 /HPF (0-5)
[2018-10-28] MEDS: BLOOD GLUCOSE MONITORING 1 DEV DEV FS SCH (21:00)
[2018-10-28] MEDS ORDERED: ZOLPIDEM 5 MG TAB PO PRN (21:00)
[2018-10-28 21:20] VITALS: BP 145/72
--- NOTE | 2018-10-28 21:20 | NUR ---
RECEIVED BEDSIDE REPORT FROM ER NURSE ELLI. PATIENT IS AWAKE, ALERT, AND COOPERATIVE. WELSH SPEAKING ONLY. GRANDDAUGHTER AT BEDSIDE PROVIDED ALL MEDICAL HISTORY OF THE PATIENT. PATIENT RESPIRATION EVEN UNLABORED ON ROOM AIR. SKIN IS WARM AND DRY. LEFT LATERAL CALF NOTED SKIN TEAR. IV PATENT AND INTACT. DENIES PAIN. LUNGS SOUNDS CLEAR ON AUSCULTATION. BOWEL SOUNDS PRESENT IN ALL QUADRANTS. ABDOMEN SOFT AND NON-TENDER. DENIES PAIN. LAST BM 10/28/18. PLAN OF CARE WAS DISCUSSED. MRSA SCREEN DONE. VITALS WERE TAKEN. ALL SAFETY MEASURES IN PLACE. BED IS AT LOW POSITION. CALL LIGHT WITHIN REACH. WILL CONTINUE TO MONITOR.
[2018-10-28] MEDS ORDERED: LEVOFLOXACIN 500 MG/D5W PREMIX 100 ML IV SCH (22:00)
[2018-10-28] MEDS: GEMFIBROZIL 600 MG TAB PO SCH (22:13)
[2018-10-28] MEDS: NACL 0.9% 1,000 ML IV SCH (22:14)
[2018-10-28] MEDS: INSULIN LISPRO SLIDING SCALE 100 UNITS/ML VIAL SUBQ PRN (22:33)
--- NOTE | 2018-10-28 22:36 | NUR ---
ALL SCHEDULED MEDS WERE GIVEN PER ORDER. WILL CONTINUE TO MONITOR.
[2018-10-29] VITALS: BP 108/65
--- NOTE | 2018-10-29 | NUR ---
VITALS WERE TAKEN. PATIENT IN STABLE CONDITION. NO DISTRESS NOTED. WILL CONTINUE TO MONITOR.
--- NOTE | 2018-10-29 02:00 | NUR ---
CHECKED PATIENT. PATIENT SLEEPING RESPIRATION EVEN UNLABORED ON ROOM AIR. NO DISTRESS NOTED. WILL CONTINUE TO MONITOR.
--- NOTE | 2018-10-29 04:00 | NUR ---
AMBULATE PATIENT TO THE BATHROOM. PATIENT IN STABLE CONDITION NO DISTRESS NOTED. WILL CONTINUE TO MONITOR.
[2018-10-29] MEDS: metroNIDAZOLE 500 MG/NS PREMIX 100 ML IV SCH ×3 (05:36→18:16)
[2018-10-29] MEDS: LEVOTHYROXINE 0.025 MG TAB PO SCH (05:57)
[2018-10-29] MEDS: PANTOPRAZOLE 40 MG TABEC PO SCH (05:57)
[2018-10-29] MEDS: BLOOD GLUCOSE MONITORING 1 DEV DEV FS SCH ×4 (06:01→22:09)
--- NOTE | 2018-10-29 07:11 | NUR ---
ENDORSED PATIENT TO DAY SHIFT NURSE FOR CONTINUITY OF CARE. PATIENT IN STABLE CONDITION
--- NOTE | 2018-10-29 07:54 | NUR ---
RECEIVED HAND OFF REPORT FROM PM RN PT AWAKE IN BED IV SITE IS PATENT AND SHOWS NO SIGNS OF INFILTRATION OR INFLAMMATION. ALL SAFETY MEASURES ARE IN PLACE WILL CONTINUE TO MONITOR.
--- NOTE | 2018-10-29 08:08 | NUR ---
PATIENT HAS BEEN SCREENED AND CATEGORIZED MODERATE NUTRITION RISK. PATIENT WILL BE SEEN WITHIN 3-5 DAYS OF ADMISSION. 10/31/18[address]
[2018-10-29 08:33] LABS: BASOPHILS % (AUTO) 0.4 % (0.0-2.0); EOSINOPHILS # (AUTO) 0.1 K/uL (0-0.4); EOSINOPHILS % (AUTO) 1.2 % (0.0-4.0); HEMATOCRIT 33.8 % (36-48); HEMOGLOBIN 11.2 g/dL (12.0-16.0); LYMPHOCYTES # (AUTO) 1.9 K/uL (2.5-16.5); LYMPHOCYTES % (AUTO) 22.8 % (20.5-51.1); MEAN CORPUSCULAR HEMOGLOBIN 29 pg (27-31); MEAN CORPUSCULAR HGB CONC 33 g/dL (33-37); MONOCYTES # (AUTO) 0.7 K/uL (0.8-1.0); MONOCYTES % (AUTO) 8.2 % (1.7-9.3); NEUTROPHILS # (AUTO) 5.7 K/uL (1.8-7.7); NEUTROPHILS % (AUTO) 67.4 % (42.2-75.2); PLATELET COUNT (AUTO) 188 K/uL (140-450); RED BLOOD CELL COUNT(AUTO) 3.88 MIL/uL (4.20-5.40); RED CELL DISTRIBUTION WIDTH 15.1 % (11.6-13.7); WHITE BLOOD COUNT (AUTO) 8.4 K/uL (4.8-10.8)
[2018-10-29] MEDS: NACL 0.9% 1,000 ML IV SCH (08:50)
[2018-10-29] MEDS: ASPIRIN 81 MG TAB.CHEW PO SCH (08:50)
[2018-10-29] MEDS: ATORVASTATIN 20 MG TAB PO SCH (08:51)
[2018-10-29] MEDS: MEGESTROL 400 MG/10 ML UDC PO SCH (08:51)
[2018-10-29] MEDS: ENOXAPARIN 30 MG/0.3 ML SYR SUBQ SCH (08:51)
[2018-10-29] MEDS: GEMFIBROZIL 600 MG TAB PO SCH ×2 (08:51→22:10)
[2018-10-29] MEDS: cloNIDine 0.1 MG TAB PO SCH ×3 (09:00→17:00)
--- NOTE | 2018-10-29 09:40 | NUR ---
HELD CATAPRES. MORNING BLOOD PRESSURE WAS 123/60. ASKED CHARGE NURSE CHARGE NURSE SEDRICK SAID OK TO HOLD. ADMINISTERED ALL OTHER MORNING MEDICATIONS. FOR PT. SCANNER BROKEN ON WOW UNABLE TO SCAN
[2018-10-29] MEDS: INSULIN LISPRO SLIDING SCALE 100 UNITS/ML VIAL SUBQ PRN ×3 (12:32→22:15)
[2018-10-29] MEDS: NACL 0.45% 1,000 ML IV SCH (13:23)
--- NOTE | 2018-10-29 13:24 | NUR ---
DID NOT ADMINISTER CATAPRES ASSESSED BLOOD PRESSURE TO LOW TO ADMINISTER 123/60
--- NOTE | 2018-10-29 13:26 | NUR ---
CHANGED IVF TO 0.45% NS PER ORDERS. AT 75ML/HR IV SITE IS PATENT AND SHOWS NO SIGNS OF INFLAMMATION OR INFILTRATION WILL CONTINUE TO MONITOR.
--- NOTE | 2018-10-29 14:57 | NUR ---
FREQUENT ROUNDING ON PT PT APPEARS STABLE AND IN NO APPARENT DISTRESS ALL SAFETY MEASURES ARE IN PLACE. WILL CONTINUE TO MONITOR.
[2018-10-29 16:00] VITALS: BP 135/72
--- NOTE | 2018-10-29 18:16 | NUR ---
ADMINISTERED IVP FLAGYL. UNABLE TO SCAN MEDICATION WOW 2 SCANNER BROKEN
--- NOTE | 2018-10-29 19:38 | NUR ---
ENDORSED PT TO PM RN PT APPEARS STABLE AND IN NO APPARENT DISTRESS. IV SITE APPEARS PT WITH NO SIGNS OF INFILTRATION OR INFLAMMATION
--- NOTE | 2018-10-29 19:39 | NUR ---
RECEIVED REPORT FROM AM NURSE. PT AWAKE, ALERT AND ORIENTED. ABLE TO ANSWER QUESTIONS AND FOLLOW COMMANDS. VISIBLE CHEST RISE AND FALL ON ROOM AIR, NO NOTED DISTRESS. LEFT FOREARM 22G INTACT AND INFUSING WELL. NO C/O DISCOMFORT. ON CONTACT PRECAUTIONS. SAFETY MEASURES IN PLACE. CALL LIGHT WITHIN REACH.
--- NOTE | 2018-10-29 22:09 | NUR ---
BLOOD GLUCOSE 183. ADMINISTERED INSULIN PER SLIDING SCALE. PT TOLERATED WELL.
[2018-10-30] VITALS: BP 143/82
--- NOTE | 2018-10-30 00:05 | NUR ---
VITALS TAKEN. PT SLEEPING BUT EASILY AWAKEN BY VOICE. BREATHING EQUAL AND UNLABORED. NO C/O DISTRESS. WILL CONTINUE TO MONITOR.
[2018-10-30] MEDS: metroNIDAZOLE 500 MG/NS PREMIX 100 ML IV SCH ×2 (01:56→05:48)
[2018-10-30] MEDS: NACL 0.45% 1,000 ML IV SCH (02:06)
--- NOTE | 2018-10-30 02:06 | NUR ---
NEW BAG IV FLUIDS HUNG. PT SLEEPING, VISIBLE CHEST RISE AND FALL ON ROOM AIR. NO VISIBLE SIGNS OF DISTRESS. CALL LIGHT WITHIN REACH.
[2018-10-30] MEDS: PANTOPRAZOLE 40 MG TABEC PO SCH (05:48)
[2018-10-30] MEDS: LEVOTHYROXINE 0.025 MG TAB PO SCH (05:48)
--- NOTE | 2018-10-30 05:53 | NUR ---
BLOOD GLUCOSE 141. NO COVERAGE NEEDED PER SLIDING SCALE. MEDICATIONS ADMINISTERED, TOLERATED WELL. PT AWAKE, SITTING UP IN BED. BREATHING EQUAL AND UNLABORED. PT IN STABLE CONDITION, NO VISIBLE SIGNS OF DISTRESS.
[2018-10-30] MEDS: BLOOD GLUCOSE MONITORING 1 DEV DEV FS SCH (05:55)
--- NOTE | 2018-10-30 07:25 | NUR ---
RECEIVED HAND OFF REPORT FROM FIELD INSURANCE SALES MANAGER NURSE. PT IS AWAKE IN BED PT APPEARS STABLE AND IN NO APPARENT DISTRESS. ALL SAFETY MEASURES ARE PLACE. PT IS ON ROOM AIR. PT IS RECEIVING IVF IV SITE IS PATENT AND SHOWS NO SIGNS OF INFILTRATION OR INFLAMMATION
[2018-10-30] MEDS ORDERED: CIPR250T6 PO (07:49)
[2018-10-30] MEDS ORDERED: METR250T2 PO (07:49)
[2018-10-30 08:00] VITALS: BP 161/76
[2018-10-30 08:14] LABS: BASOPHILS % (AUTO) 0.5 % (0.0-2.0); EOSINOPHILS # (AUTO) 0.1 K/uL (0-0.4); EOSINOPHILS % (AUTO) 1.6 % (0.0-4.0); HEMOGLOBIN 12.2 g/dL (12.0-16.0); LYMPHOCYTES # (AUTO) 2.5 K/uL (2.5-16.5); LYMPHOCYTES % (AUTO) 31.6 % (20.5-51.1); MEAN CORPUSCULAR HEMOGLOBIN 29 pg (27-31); MEAN CORPUSCULAR HGB CONC 34 g/dL (33-37); MEAN CORPUSCULAR VOLUME 86.1 fL (80-94); MONOCYTES # (AUTO) 0.7 K/uL (0.8-1.0); NEUTROPHILS # (AUTO) 4.5 K/uL (1.8-7.7); NEUTROPHILS % (AUTO) 57.3 % (42.2-75.2); PLATELET COUNT (AUTO) 224 K/uL (140-450); RED BLOOD CELL COUNT(AUTO) 4.19 MIL/uL (4.20-5.40); WHITE BLOOD COUNT (AUTO) 7.9 K/uL (4.8-10.8)
[2018-10-30] MEDS: cloNIDine 0.1 MG TAB PO SCH (09:13)
[2018-10-30] MEDS: GEMFIBROZIL 600 MG TAB PO SCH (09:14)
[2018-10-30] MEDS: ASPIRIN 81 MG TAB.CHEW PO SCH (09:14)
[2018-10-30] MEDS: ATORVASTATIN 20 MG TAB PO SCH (09:14)
[2018-10-30] MEDS: MEGESTROL 400 MG/10 ML UDC PO SCH (09:15)
[2018-10-30] MEDS: ENOXAPARIN 30 MG/0.3 ML SYR SUBQ SCH (09:20)
--- NOTE | 2018-10-30 09:36 | NUR ---
FREQUENT ROUNDING ON PT PT APPEARS STABLE AND IN NO APPARENT DISTRESS. ALL SAFETY MEASURES ARE IN PLACE WILL CONTINUE TO MONITOR. IVF INFUSING IV SITE PATENT WITH NO SIGNS OF INFILTRATION OR INFLAMMATION.
[2018-10-30 09:41] LABS: MAGNESIUM 1.2 mg/dL (1.8-2.4)
[2018-10-30 10:08] LABS: ANION GAP 20.6 (8-16); CARBON DIOXIDE 15.5 mmol/L (21-32); CHLORIDE 109 mmol/L (98-107); CREATININE 1.4 mg/dL (0.6-1.3); GLUCOSE 156 mg/dL (74-106); POTASSIUM 3.1 mmol/L (3.5-5.1); SODIUM SERUM 142 mmol/L (136-145); UREA NITROGEN, BLOOD 30 mg/dL (7-18)
--- NOTE | 2018-10-30 10:56 | NUR ---
CATAPRESS REASSESSMENT. BP 147/76 PT AWAKE IN BED PT APPEARS STABLE AND IN NO APPARENT DISTRESS. ADMINISTERED 40MRQ POTASSIUM FOR PTS POTASSIUM LEVEL OF 3.1 WILL CONTINUE TO MONITOR PT. PT IS AWARE THAT SHE IS PLANNED FOR DISCHARGED TODAY
[2018-10-30 11:02] VITALS: BP 161/76
--- NOTE | 2018-10-30 11:36 | NUR ---
FAMILY AT BEDSIDE. REMOVED IV IV TIP INTACT. REMOVED ID BAND PLACED IN SHREDDER BIN. REVIEWED DISCHARGE INSTRUCTIONS, INFORMED PT AND FAMILY OF PRESCRIPTION AND TO FILL AT THERE PREFERRED PHARMACY. INSTRUCTED PT AND FAMILY TO FOLLOW UP WITH THERE PRIMARY CARE PROVIDER WITHIN 2 WEEKS. ANSWERED ALL QUESTIONS PT SIGNED ALL DISCHARGE PAPERWORK. ASSISTED PT TO FRONT LOBBY VIA WHEELCHAIR. PT STABLE
[2018-10-30] MEDS ORDERED: LEVOFLOXACIN 250 MG/D5 PREMIX 50 ML IV SCH (22:00)
== END 2018-10-30 11:45 | disposition home or self-care (01) | DRG 392 ==
LOC: MED 18:09 → MTU 20:16
PROVIDERS: ADMIT Internal Medicine Pulmonary Disease; ATTEND Internal Medicine Pulmonary Disease
DX: K57.32 Diverticulitis of large intestine without perforation or abscess without bleeding (principal); N17.9 Acute kidney failure, unspecified; E03.9 Hypothyroidism, unspecified; E11.22 Type 2 diabetes mellitus with diabetic chronic kidney disease; E78.5 Hyperlipidemia, unspecified; I12.9 Hypertensive chronic kidney disease with stage 1 through stage 4 chronic kidney disease, or unspecified chronic kidney disease; N18.9 Chronic kidney disease, unspecified; M51.9 Unspecified thoracic, thoracolumbar and lumbosacral intervertebral disc disorder; D64.9 Anemia, unspecified; E11.65 Type 2 diabetes mellitus with hyperglycemia; E87.5 Hyperkalemia; D72.829 Elevated white blood cell count, unspecified
CPT/HCPCS: 36415; 71045; 72128; 72131; 76770; 80048; 80053; 81001; 82948; 83605; 83735; 83880; 84100; 84484; 85025; 85610; 85730; 87040; 87081; 87086; 96361; 96365; 96372; 96375; 99285; J1650; J1815; J1885; J1956; J3490; J7030; Q0092

== ENCOUNTER 2018-12-23 07:34 | Emergency (ER) | payer OTHER ==
[~2018-12-23] VITALS: Ht 154.9 cm; Wt 52.6 kg
[~2018-12-23 07:34] MED LIST changes: -CEPH500C16 PO; +CIPR250T6 PO; +METR250T2 PO; -OMEP40EC1 PO; +OMEP40EC24 PO
[2018-12-23 07:37] VITALS: BP 130/91
--- NOTE | 2018-12-23 07:42 | NUR ---
Patient ambulated to bed 4 with family. RN evaluating patient at bedside.
--- NOTE | 2018-12-23 07:45 | NUR ---
PT BIB FAMILY FOR RIGHT ARM PAIN. PT PAIN LEVEL 10/10 RADIATING TO RIGHT ELBOW. PT TOOK TYLENOL AT 2100 LAST NIGHT AND HAS BEEN USING ICY HOT PATCH WITH PAIN RELIEF. PT UNAWARE OF RECENT TRAUMA OR INJURY. PT ALERT AND ORIENTED. GCS 15. LUNG SOUNDS CLEAR BILATERALLY. VSS. ABLE TO ABLULATE WITH STEADY GAIT. PER PT FAMILY THEY BROUGHT PT TO ER FOR REGULAR CHECK UP. PT FAMILY STATED "PT SON LAST NIGHT AND PATIENT IS UNAWARE OF HER SON'S STATUS AT THIS TIME. THEY WANT TO NOTIFY PT ABOUT SON'S " NKA. MED HX: DM, KIDNEY FAILURE, HTN, HIGH CHOLESTEROL, AND HYPOTHYROIDISM. SAFETY MEASURES IN PLACE. ERMD MADE AWARE OF STATUS.
[2018-12-23] MEDS ORDERED: LORazepam 1 MG TAB PO ONE (08:00)
[2018-12-23] MEDS ORDERED: IBUPROFEN 400 MG TAB PO ONE (08:00)
[2018-12-23 08:49] VITALS: BP 136/72
--- NOTE | 2018-12-23 08:49 | NUR ---
Patient discharged with v/s stable. Written and verbal after care instructions given and explained. Patient alert, oriented and verbalized understanding of instructions. Ambulatory with steady gait. All questions addressed prior to discharge. ID band removed. Patient advised to follow up with PMD. Rx of ATIVAN AND NAPROXEN was given. Patient educated on indication of medication including possible reaction and side effects. Opportunity to ask questions provided and answered.
== END 2018-12-23 08:50 | disposition home or self-care (01) ==
LOC: MED 07:34
DX: M25.511 Pain in right shoulder (principal); F43.9 Reaction to severe stress, unspecified; E11.9 Type 2 diabetes mellitus without complications; I10 Essential (primary) hypertension; E07.9 Disorder of thyroid, unspecified; Z79.82 Long term (current) use of aspirin; Z79.899 Other long term (current) drug therapy
CPT/HCPCS: 99283

== ENCOUNTER 2020-06-11 12:19 | Emergency (ER) | payer OTHER ==
[~2020-06-11] VITALS: Ht 154.9 cm; Wt 55.3 kg
[~2020-06-11 12:19] MED LIST changes: +CLON-268 PO; -CLON0.1T42 PO; -GEMF-61 PO; +GEMF-66 PO; -LEVO0.0216 PO; +LEVO25TA PO; +MEGE40TA17 PO; -MEGE40TA4 PO; +METR-520 PO; -METR250T2 PO
[2020-06-11 14:21] VITALS: BP 131/88
== END 2020-06-11 14:22 | disposition home or self-care (01) ==
LOC: MED 12:19
DX: R60.0 Localized edema (principal); M79.601 Pain in right arm; M79.602 Pain in left arm; E11.9 Type 2 diabetes mellitus without complications; K21.9 Gastro-esophageal reflux disease without esophagitis; I10 Essential (primary) hypertension; E03.9 Hypothyroidism, unspecified; Z79.899 Other long term (current) drug therapy
CPT/HCPCS: 93970; 99284

== ENCOUNTER 2021-06-12 13:51 | Emergency (ER) | payer OTHER ==
[~2021-06-12] VITALS: Ht 154.9 cm; Wt 53.3 kg
[~2021-06-12 13:51] MED LIST changes: -CLON-268 PO; +CLON0.1T16 PO
[2021-06-12 13:52] VITALS: BP 158/69
[2021-06-12] MEDS ORDERED: CEPH-588 PO (14:19)
--- NOTE | 2021-06-12 14:42 | NUR ---
85Y FEMALE BIB DAUGHTER WITH C/O R LOWER LEG PAIN, REDNESS, SWELLING X2 DAYS. PER DAUGHTER PT WAS BIT BY SPIDER AND HAD PIMPLE LIKE BUMP ON HER LEG. UPON ASSESSMENT LLE IS RED AND SWOLLEN. PIMPLE LIKE OPEN WOUND NOTED. PMH: DM, KIDNEY FAILURE NKA
[2021-06-12 14:46] VITALS: BP 158/69
== END 2021-06-12 14:46 | disposition home or self-care (01) ==
LOC: MED 13:51
DX: L03.116 Cellulitis of left lower limb (principal); E11.9 Type 2 diabetes mellitus without complications; I10 Essential (primary) hypertension; K21.9 Gastro-esophageal reflux disease without esophagitis
CPT/HCPCS: 99283